=== PATIENT | female | born 1935 | race Caucasian/White ===

== ENCOUNTER 2019-02-03 16:24 | Observation (INO) | payer MEDICARE, OTHER ==
[~2019-02-03] VITALS: Ht 152.4 cm; Wt 66.7 kg
--- NOTE | 2019-02-03 16:30 | NUR ---
Contact made of pt's choice to dgt Jacinda [phone] which lives [place]. Gave info leading to arrival and pending work up. She is in route to come shortly after a son picks her up. They will come to [facility] to get patient's car irregardless if she is admitted to [place]. Pt's keys will be kept in ER [facility] for them to orange picker to go obtain car from [employer] on [address] Pt agreeable to this.
--- NOTE | 2019-02-03 16:48 | ED General ---
General Stated Complaint: BLOOD SUGAR ISSUES Source of Information: Patient, EMS Exam Limitations: No Limitations (NASRA CAMPOS DO) History of Present Illness Date Seen by Provider: Feb 03, 2019 Time Seen by Provider: 16:35 Initial Comments The patient is a very pleasant 83-year-old female who presents for evaluation of exhaustion and some confusion. She is from out of town and is traveling to visit her son and stopped at a gas station to ask for directions and seemed like she was going to pass out so staff had her sit in a chair and called EMS. Upon arrival she states that she feels confused and that she never feels confused. She states that she is extremely tired and just wants to sleep. Denies headache, vision changes, neck pain or neck stiffness, focal weakness or numbness, difficulty speaking, difficulty walking, chest pain or shortness of breath, abdominal or back pain, rectal bleeding, palpitations, or syncope. She does report some dysuria over the last 2 days. She is alert and oriented 4, calm, and appears to be no distress this time. Severity: Moderate Associated Systoms: Denies Symptoms (NASRA CAMPOS DO) Allergies and Home Medications Allergies Coded Allergies: No Known Drug Allergies (Unverified , 02/03/19) Home Medications Unable to Obtain Active Prescriptions or Reported Meds Patient Home Medication List Home Medication List Reviewed: Yes (NASRA CAMPOS DO) Review of Systems Review of Systems Constitutional: malaise, weakness EENTM: no symptoms reported Respiratory: no symptoms reported Cardiovascular: no symptoms reported Gastrointestinal: no symptoms reported Genitourinary: no symptoms reported Musculoskeletal: no symptoms reported Skin: no symptoms reported Psychiatric/Neurological: No Symptoms Reported Hematologic/Lymphatic: No Symptoms Reported Immunological/Allergic: no symptoms reported (NASRA CAMPOS DO) All Other Systems Reviewed Negative Unless Noted: Yes (NASRA CAMPOS DO) Past Kggogvv-Shehka-Hmolyq Hx Past Med/Social Hx: Reviewed Nursing Past Med/Soc Hx (NASRA CAMPOS DO) Patient Social History Recent Foreign Travel: No Contact w/Someone Who Travel: No (NASRA CAMPOS DO) Physical Exam Vital Signs Vital Signs - First Documented 02/03/19 16:24 Temp 36.7 Pulse 96 Resp 15 B/P (MAP) 126/57 (80) Pulse Ox 93 O2 Delivery Room Air (KRIS GUILLERMO MD) Vital Signs Capillary Refill : (NASRA CAMPOS DO) Height, Weight, BMI Height: '" Weight: lbs. oz. 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 Norm as Tested Skin: Normal Color, Warm/Dry (NASRA CAMPOS DO) Focused Exam Lactate Level 02/03/19 16:30: Lactic Acid Level 1.17 (KRIS GUILLERMO MD) Lactic Acid Level (KRIS GUILLERMO MD) Progress/Results/Core Measures Suspected Sepsis SIRS Temperature: Pulse: Respiratory Rate: Laboratory Tests 02/03/19 16:30: White Blood Count 11.8H Blood Pressure / Mean: Laboratory Tests 02/03/19 16:30: Creatinine 1.29, Platelet Count 272, Total Bilirubin 0.5 (NASRA CAMPOS DO) Results/Orders Lab Results Laboratory Tests Test 02/03/19 16:30 02/03/19 17:50 Range/Units White Blood Count 11.8 H 4.3-11.0 10^3/uL Red Blood Count 4.22 L 4.35-5.85 10^6/uL Hemoglobin 12.8 11.5-16.0 G/DL Hematocrit 39 35-52 % Mean Corpuscular Volume 92 80-99 FL Mean Corpuscular Hemoglobin 30 25-34 PG Mean Corpuscular Hemoglobin Concent 33 32-36 G/DL Red Cell Distribution Width 13.7 10.0-14.5 % Platelet Count 272 130-400 10^3/uL Mean Platelet Volume 8.9 7.4-10.4 FL Neutrophils (%) (Auto) 78 H 42-75 % Lymphocytes (%) (Auto) 13 12-44 % Monocytes (%) (Auto) 8 0-12 % Eosinophils (%) (Auto) 0 0-10 % Basophils (%) (Auto) 1 0-10 % Neutrophils # (Auto) 9.3 H 1.8-7.8 X 10^3 Lymphocytes # (Auto) 1.5 1.0-4.0 X 10^3 Monocytes # (Auto) 1.0 0.0-1.0 X 10^3 Eosinophils # (Auto) 0.0 0.0-0.3 10^3/uL Basophils # (Auto) 0.1 0.0-0.1 10^3/uL Sodium Level 139 135-145 MMOL/L Potassium Level 4.0 3.6-5.0 MMOL/L Chloride Level 101 98-107 MMOL/L Carbon Dioxide Level 21 21-32 MMOL/L Anion Gap 17 H 5-14 MMOL/L Blood Urea Nitrogen 18 7-18 MG/DL Creatinine 1.29 0.60-1.30 MG/DL Estimat Glomerular Filtration Rate 39 BUN/Creatinine Ratio 14 Glucose Level 187 H 70-105 MG/DL Lactic Acid Level 1.17 0.50-2.00 MMOL/L Calcium Level 8.9 8.5-10.1 MG/DL Corrected Calcium 9.1 8.5-10.1 MG/DL Magnesium Level 1.9 1.6-2.4 MG/DL Total Bilirubin 0.5 0.1-1.0 MG/DL Aspartate Amino Transf (AST/SGOT) 18 5-34 U/L Alanine Aminotransferase (ALT/SGPT) 10 0-55 U/L Alkaline Phosphatase 81 40-136 U/L Troponin I < 0.30 <0.30 NG/ML Total Protein 6.8 6.4-8.2 GM/DL Albumin 3.7 3.2-4.5 GM/DL Urine Color YELLOW Urine Clarity CLOUDY Urine pH 6.5 5-9 Urine Specific [place] 1.015 L 1.016-1.022 Urine Protein 2+ H NEGATIVE Urine Glucose (UA) NEGATIVE NEGATIVE Urine Ketones 2+ H NEGATIVE Urine Nitrite POSITIVE H NEGATIVE Urine Bilirubin NEGATIVE NEGATIVE Urine Urobilinogen 0.2 NORMAL MG/DL Urine Leukocyte Esterase 3+ H NEGATIVE Urine RBC (Auto) 2+ H NEGATIVE Urine RBC 10-25 H /HPF Urine WBC >100 H /HPF Urine Squamous Epithelial Cells NONE /HPF Urine Crystals NONE /LPF Urine Bacteria LARGE H /HPF Urine Casts NONE /LPF Urine Mucus NEGATIVE /LPF Urine Culture Indicated YES (KRIS GUILLERMO MD) My Orders Orders - KRIS GUILLERMO MD Ns Iv 1000 Ml (Sodium Chloride 0.9%) (02/03/19 18:21) Ceftriaxone For Iv Use (Rocephin For I (02/03/19 19:02) Ns Iv 1000 Ml (Sodium Chloride 0.9%) (02/03/19 19:30) (KRIS GUILLERMO MD) Vital Signs/I&O 02/03/19 02/03/19 02/03/19 02/03/19 16:24 20:05 21:21 21:21 Temp 36.7 37.3 37.3 Pulse 96 98 96 96 Resp 15 25 18 18 B/P (MAP) 126/57 (80) 125/54 123/62 123/62 (82) Pulse Ox 93 95 94 94 O2 Delivery Room Air Room Air Room Air Room Air (KRIS GUILLERMO MD) Vital Signs/I&O Capillary Refill : (NASRA CAMPOS DO) Progress Note : Progress Note @1800 - Pt care handed over to Dr. Guillermo at this time. Awaiting urinalysis. RN has spoken with pt's family and they are aware she will likely need to be admitted and are planning to come here to see her and help with her vehicle. (NASRA CAMPOS DO) Progress Note #1: Time: 18:00 Progress Note I assumed care for the patient from Dr. Campos at shift change. Patient waiting on Urinalysis to determine disposition but plan from Dr. Campos was to admit for confusion presuming that she has a UTI. She also appears to be dry with her having heart rate just over 100 and Cr 1.29 and GFR 39. Will give IVF while waiting on cath UA results and Lactic acid to come back. When speaking with the patient she was still confused for me as she was oriented to self but could not tell me where she was at until prompted and finally could tell me the building was a hospital and for time initially told me it was 1919 then 1920 then corrected herself to say it was 2019. Progress Note #2: Progress Note Urinalysis shows infection with positive Leukocyte esterase as well as nitrites. She has bacteria with white blood cells and some blood. A culture will be run. With her continued confusion will give antibiotics here and discuss with the hospitalist about admission to ensure that her mentation is clearing prior to discharging home with family. Will give Rocephin 1 g IV and continue hydration and 75 mls per hour of normal saline. Discussed with Dr. Ladd is the hospitalist program management professional and she accepted the admission at 1912. (KRIS GUILLERMO MD) ECG EKG : Comment @1624 - Normal sinus rhythm, rate of 98, no acute ischemic findings noted, no STEMI, reviewed and interpreted by myself (NASRA CAMPOS DO) Diagnostic Imaging Comments [facility]. POS [place], [place] POS NAME: JIMMIE VEGA [facility] REC#: [id number] PT STATUS: REG ER : 1935 PHYSICIAN: NASRA CAMPOS DO ADMIT DATE: 02/03/19/ER FS Draft POSDate of Exam:02/03/19 CT HEAD WO PROCEDURE: CT head without contrast. TECHNIQUE: Multiple contiguous axial images were obtained through the brain without the use of intravenous contrast. Auto Exposure Controls were utilized during the CT exam to meet ALARA standards for radiation dose reduction. INDICATION: Acute onset dizziness. COMPARISON: There is no previous study for comparison. FINDINGS: Ventricles and sulci are prominent. Focal lucency is seen within the left basal ganglia which may be related to old lacunar infarct or possible prominent perivascular space. There is no evidence of hemorrhage. No territorial infarct is identified. Calvarium is intact. There is a prominent subcutaneous nodule in the left posterior parietal scalp measuring approximately 2.4 x 1.3 cm. IMPRESSION: No acute intracranial abnormality. Dictated on workstation # [id number] Dict: 02/03/191703 Trans: 02/03/19 1706 [facility] [id number] Interpreted by: ROSANA MIDDLETON MD Electronically signed by: (NASRA CAMPOS DO) Diagonstic Imaging: Xray Plain Films/CT/US/NM/MRI: chest Comments NAME: JIMMIE VEGA [facility] REC#: [id number] PT STATUS: REG ER : 1935 PHYSICIAN: NASRA CAMPOS DO ADMIT DATE: 02/03/19/ER FS Draft POSDate of Exam:02/03/19 CHEST 1 VIEW AP/PA ONLY INDICATION: Syncope. Sudden onset of dizziness. EXAMINATION: Portable chest. FINDINGS: The lungs are well aerated. There are no infiltrates. There is no air-trapping. The heart is not enlarged. No pulmonary edema. No hilar adenopathy. No pneumothorax or pleural effusion. No bony abnormality. IMPRESSION: Normal portable chest. Dictated on workstation # [id number] Dict: 02/03/19 1719 Trans: 02/03/19 1721 [facility] [id number] Interpreted by: JUDE LOERA MD Electronically signed by: (KRIS GUILLERMO MD) Departure Communication (Admissions) Time/Spoke to Admitting Phy: 19:12 D/w Dr. Ladd about results and desire to admit overnight for gentle hydration and antibiotics to see if that helps her mentation clear. Family on their way from [place] to get her car and would be able to help get her home in the morning if she is improving. Will recheck labs in am. (KRIS GUILLERMO MD) Impression Primary Impression: Acute cystitis with hematuria Additional Impressions: Altered mental status Qualified Codes: R40.4 - Transient alteration of awareness Dehydration Acute renal insufficiency Disposition: ADMITTED INPATIENT Condition: Stable Admissions Decision to Admit Reason: Admit from ER (General) Decision to Admit/Date: Feb 03, 2019 Time/Decision to Admit Time: 19:12 (KRIS GUILLERMO MD) Departure-Patient Inst. Scripts Unable to Obtain Active Prescriptions or Reported Meds NASRA CAMPOS DO Feb 03, 2019 16:48 KRIS BLACKMON MD Feb 03, 2019 18:20 POS
--- NOTE | 2019-02-03 17:07 | Diagnostic Imaging Report ---
PROCEDURE: CT head without contrast. TECHNIQUE: Multiple contiguous axial images were obtained through the brain without the use of intravenous contrast. Auto Exposure Controls were utilized during the CT exam to meet ALARA standards for radiation dose reduction. INDICATION: Acute onset dizziness. COMPARISON: There is no previous study for comparison. FINDINGS: Ventricles and sulci are prominent. Focal lucency is seen within the left basal ganglia which may be related to old lacunar infarct or possible prominent perivascular space. There is no evidence of hemorrhage. No territorial infarct is identified. Calvarium is intact. There is a prominent subcutaneous nodule in the left posterior parietal scalp measuring approximately 2.4 x 1.3 cm. IMPRESSION: No acute intracranial abnormality. Dictated by: Dictated on workstation # [id number]
--- NOTE | 2019-02-03 17:21 | Diagnostic Imaging Report ---
INDICATION: Syncope. Sudden onset of dizziness. EXAMINATION: Portable chest. FINDINGS: The lungs are well aerated. There are no infiltrates. There is no air-trapping. The heart is not enlarged. No pulmonary edema. No hilar adenopathy. No pneumothorax or pleural effusion. No bony abnormality. IMPRESSION: Normal portable chest. Dictated by: Dictated on workstation # [id number]
[2019-02-03 17:24] LABS: BILIRUBIN,TOTAL 0.5 MG/DL (0.1-1.0); CALCIUM 8.9 MG/DL (8.5-10.1); CREATININE SERUM 1.29 MG/DL (0.60-1.30); MAGNESIUM 1.9 MG/DL (1.6-2.4); TOTAL PROTEIN 6.8 GM/DL (6.4-8.2)
[2019-02-03 17:25] LABS: ALBUMIN 3.7 GM/DL (3.2-4.5); HEMATOCRIT 39 % (35-52); HEMOGLOBIN 12.8 G/DL (11.5-16.0); MEAN CORPUSCULAR HEMOGLOBIN 30 PG (25-34); WHITE BLOOD COUNT 11.8 10^3/uL (4.3-11.0)
[2019-02-03 17:26] LABS: BASOPHILS # (AUTO) 0.1 10^3/uL (0.0-0.1); BASOPHILS % (AUTO) 1 % (0-10); EOSINOPHILS % (AUTO) 0 % (0-10); LYMPHOCYTES # (AUTO) 1.5 X 10^3 (1.0-4.0); LYMPHOCYTES % (AUTO) 13 % (12-44); MEAN CORPUSCULAR HGB CONC 33 G/DL (32-36); MEAN CORPUSCULAR VOLUME 92 FL (80-99); MEAN PLATELET VOLUME 8.9 FL (7.4-10.4); MONOCYTES % (AUTO) 8 % (0-12); NEUTROPHILS # (AUTO) 9.3 X 10^3 (1.8-7.8); NEUTROPHILS % (AUTO) 78 % (42-75); PLATELET COUNT 272 10^3/uL (130-400); RED CELL DISTRIBUTION WIDTH 13.7 % (10.0-14.5)
--- NOTE | 2019-02-03 18:14 | NUR ---
Pt's son Milton Hanley in [place] [phone] called as he has text patient and not getting answer and Jacinda the sister has notified him. He reports she is very sharp and very healthy, no health problems. Pt handles her own affairs. Pt was up visiting him a few days and he tried to convince her to stay longer as she seemed exhausted and they thought she was going to bathroom every 5 minutes while there. Son reports he has a [employer] lyndon on her phone and can track her. He was verifying what his sister Jacinda had said. Pt had reported trying to go to [facility] to see her son and Milton reports there is no son at that location. Pt does reside in [place]. Pt has her phone and he will continue to try to reach her to speak. Phone service intermittant.
[2019-02-03] MEDS ORDERED: NS IV 1000 ML 1,000 ML IV STA (18:21)
[2019-02-03 18:26] LABS: BILIRUBIN,URINE NEGATIVE (NEGATIVE); CLARITY,URINE CLOUDY; COLOR,URINE YELLOW; GLUCOSE, URINE (UA) NEGATIVE (NEGATIVE); KETONES,URINE 2+ (NEGATIVE); NITRITE,URINE POSITIVE (NEGATIVE); PH,URINE 6.5 (5-9); PROTEIN,URINE 2+ (NEGATIVE)
[2019-02-03 18:27] LABS: LEUKOCYTE ESTERASE ,URINE 3+ (NEGATIVE)
[2019-02-03 18:29] LABS: BACTERIA,URINE LARGE /HPF; WBC,URINE >100 /HPF
--- NOTE | 2019-02-03 19:00 | NUR ---
Report to Lin DICKERSON. Pt has been told she is being admitted to [facility] for AMS, UTI. Pt's cell being charged with staff's histopath tech at this time as she has all family contacts and they are texting her.
[2019-02-03] MEDS ORDERED: cefTRIAXone FOR IV USE 1,000 MG in WATER (STERILE) FOR INJECTION 10 ML IV STA (19:02)
[2019-02-03] MEDS ORDERED: NS IV 1000 ML 1,000 ML IV SCH (19:30)
--- NOTE | 2019-02-03 20:05 | NUR ---
Ems here report given, attempted to call report to nurse, Giulia Rn will call back for report.
--- NOTE | 2019-02-03 20:38 | NUR ---
REPORT RECEIVED ON THIS PT AT THIS TIME. Addendum: 02/03/19 at 2351 by NAOMI KING RN INACCURATE TIME. REPORT RECEIVED BY ANTHNOY DICKERSON AT 2014. REPORT FROM EMS RECEIVED AT 2037.
--- NOTE | 2019-02-03 20:50 | NUR ---
JIMMIE VEGA admitted to room 420-1, with an admitting diagnosis of UTI AND AMS, on 02/03/19 from [facility] via AMBULANCE, TRANSPORTED VIA STRETCHER, accompanied by EMS STAFF. JIMMIE VEGA introduced to surroundings, call light, bed controls, phone, TV, temperature control, lights, meal times, smoking policy, visitor policy, side rail policy, bathrooms and showers. Patient Rights given to patient in the handbook. JIMMIE VEGA verbalizes understanding that [facility] is not responsible for the loss or damage to any personal effects or valuables that are kept in the patients possession during their hospitalization. JIMMIE VEGA verbalizes understanding of Interdisciplinary Patient Education. Patient and/or family were informed about the Rapid Response Team and its purpose.
[2019-02-03] MEDS ORDERED: ONDANSETRON 4 MG (ZOFRAN) ORAL DISSOLVE TAB PO PRN (21:00)
[2019-02-03] MEDS ORDERED: ALPRAZolam 0.25 MG (XANAX) TAB PO PRN (21:00)
[2019-02-03] MEDS ORDERED: ENOXAPARIN 40 MG/0.4 ML (LOVENOX) SYR SC SCH (21:00)
[2019-02-03] MEDS ORDERED: diphenhydrAMINE 25 MG TAB (BENADRYL) PO PRN (21:00)
[2019-02-03] MEDS ORDERED: ACETAMINOPHEN 500 MG TAB (TYLENOL) PO PRN (21:00)
[2019-02-03] MEDS ORDERED: MELATONIN 3 MG TABLET PO PRN (21:00)
[2019-02-03] MEDS ORDERED: ONDANSETRON 4 MG/2 ML (SDV) Z0FRAN IVP PRN (21:00)
[2019-02-03] MEDS ORDERED: fentaNYL INJECTION 100 MCG/2 ML AMP IVP PRN (21:00)
[2019-02-03] MEDS ORDERED: DOCUSATE SODIUM 100 MG (COLACE) CAP PO PRN (21:00)
[2019-02-03] MEDS ORDERED: LOPERAMIDE 2 MG (IMODIUM) TABLET PO PRN (21:00)
[2019-02-03] MEDS ORDERED: CALCIUM CARBONATE 500 MG (TUMS) TAB.CHEW PO PRN (21:00)
[2019-02-03 21:21] VITALS: BP 123/62
[2019-02-03] MEDS: SENNA W/DOCUSATE (SENOKOT S) TABLET PO SCH (22:49)
[2019-02-04 00:01] VITALS: BP 111/73
[2019-02-04 04:26] VITALS: BP 121/74
[2019-02-04 06:47] LABS: BASOPHILS % (AUTO) 0 % (0-10); EOSINOPHILS # (AUTO) 0.1 10^3/uL (0.0-0.3); EOSINOPHILS % (AUTO) 0 % (0-10); HEMATOCRIT 36 % (35-52); HEMOGLOBIN 11.8 G/DL (11.5-16.0); LYMPHOCYTES # (AUTO) 1.8 X 10^3 (1.0-4.0); LYMPHOCYTES % (AUTO) 16 % (12-44); MEAN CORPUSCULAR HEMOGLOBIN 30 PG (25-34); MEAN CORPUSCULAR HGB CONC 33 G/DL (32-36); MEAN CORPUSCULAR VOLUME 92 FL (80-99); MEAN PLATELET VOLUME 9.3 FL (7.4-10.4); MONOCYTES % (AUTO) 9 % (0-12); NEUTROPHILS # (AUTO) 8.7 X 10^3 (1.8-7.8); NEUTROPHILS % (AUTO) 75 % (42-75); PLATELET COUNT 252 10^3/uL (130-400); RED CELL DISTRIBUTION WIDTH 14.2 % (10.0-14.5); WHITE BLOOD COUNT 11.6 10^3/uL (4.3-11.0)
[2019-02-04 07:16] LABS: ALBUMIN 3.2 GM/DL (3.2-4.5); BILIRUBIN,TOTAL 0.4 MG/DL (0.1-1.0); CALCIUM 8.1 MG/DL (8.5-10.1); CREATININE SERUM 0.98 MG/DL (0.60-1.30); POTASSIUM 3.6 MMOL/L (3.6-5.0); TOTAL PROTEIN 5.8 GM/DL (6.4-8.2)
[2019-02-04] MEDS ORDERED: cefTRIAXone FOR IV USE 1,000 MG in WATER (STERILE) FOR INJECTION 10 ML IV SCH ×2 (07:45→19:00)
[2019-02-04 08:40] VITALS: BP 109/53
[2019-02-04] MEDS: SENNA W/DOCUSATE (SENOKOT S) TABLET PO SCH (09:38)
[2019-02-04] MEDS ORDERED: CEFD300C3 PO (09:44)
--- NOTE | 2019-02-04 09:53 | Discharge Summary ---
Discharge Summary Hospital Course Problems/Dx: (1) Acute cystitis with hematuria Status: Acute (2) Acute kidney injury Status: Resolved Final Diagnosis: Acute cystitis with hematuria Hospital Course Date of Admission: Feb 03, 2019 at 19:12 Admission Diagnosis : Acute cystitis with hematuria Family Physician/Provider: Date of Discharge: 02/04/19 Discharge Diagnosis: Acute cystitis with hematuria Hospital Course: Che Hanley is an 83yoF with no significant PMH who presented with confusion and was admitted with a urinary tract infection. She had been having issues with dysuria, urgency, and frequency. She was driving from [place] to [place] and got lost on the way and ended up in [place], [place]. She was found to have a UTI and was started on Rocephin. She rapidly improved and requested to be discharged so she can get home to [place]. Her daughter is present and will drive her home. She will follow up with her primary care provider early next week. We will contact her if her infection is caused by a resistant bacteria. Labs and Pending Lab Test: Laboratory Tests 02/03/19 16:30: White Blood Count 11.8H, Red Blood Count 4.22L, Hemoglobin 12.8, Hematocrit 39, Mean Corpuscular Volume 92, Mean Corpuscular Hemoglobin 30, Mean Corpuscular Hemoglobin Concent 33, Red Cell Distribution Width 13.7, Platelet Count 272, Mean Platelet Volume 8.9, Neutrophils (%) (Auto) 78H, Lymphocytes (%) (Auto) 13, Monocytes (%) (Auto) 8, Eosinophils (%) (Auto) 0, Basophils (%) (Auto) 1, Neutrophils # (Auto) 9.3H, Lymphocytes # (Auto) 1.5, Monocytes # (Auto) 1.0, Eosinophils # (Auto) 0.0, Basophils # (Auto) 0.1, Sodium Level 139, Potassium Level 4.0, Chloride Level 101, Carbon Dioxide Level 21, Anion Gap 17H, Blood Urea Nitrogen 18, Creatinine 1.29, Estimat Glomerular Filtration Rate 39, BUN/Creatinine Ratio 14, Glucose Level 187H, Lactic Acid Level 1.17, Calcium Level 8.9, Corrected Calcium 9.1, Magnesium Level 1.9, Total Bilirubin 0.5, Aspartate Amino Transf (AST/SGOT) 18, Alanine Aminotransferase (ALT/SGPT) 10, Alkaline Phosphatase 81, Troponin I < 0.30, Total Protein 6.8, Albumin 3.7 02/03/19 17:50: Urine Color YELLOW, Urine Clarity CLOUDY, Urine pH 6.5, Urine Specific [place] 1.015L, Urine Protein 2+H, Urine Glucose (UA) NEGATIVE, Urine Ketones 2+H, Urine Nitrite POSITIVEH, Urine Bilirubin NEGATIVE, Urine Urobilinogen 0.2, Urine Leukocyte Esterase 3+H, Urine RBC (Auto) 2+H, Urine RBC 10-25H, Urine WBC >100H, Urine Squamous Epithelial Cells NONE, Urine Crystals NONE, Urine Bacteria LARGEH , Urine Casts NONE, Urine Mucus NEGATIVE, Urine Culture Indicated YES 02/04/19 05:51: White Blood Count 11.6H, Red Blood Count 3.90L, Hemoglobin 11.8, Hematocrit 36, Mean Corpuscular Volume 92, Mean Corpuscular Hemoglobin 30, Mean Corpuscular Hemoglobin Concent 33, Red Cell Distribution Width 14.2, Platelet Count 252, Mean Platelet Volume 9.3, Neutrophils (%) (Auto) 75, Lymphocytes (%) (Auto) 16, Monocytes (%) (Auto) 9, Eosinophils (%) (Auto) 0, Basophils (%) (Auto) 0, Neutrophils # (Auto) 8.7H, Lymphocytes # (Auto) 1.8, Monocytes # (Auto) 1.0, Eosinophils # (Auto) 0.1, Basophils # (Auto) 0.0, Sodium Level 143, Potassium Level 3.6, Chloride Level 110H, Carbon Dioxide Level 22, Anion Gap 11, Blood Urea Nitrogen 14, Creatinine 0.98, Estimat Glomerular Filtration Rate 54, BUN/Creatinine Ratio 14, Glucose Level 107H, Calcium Level 8.1L, Corrected Calcium 8.7, Total Bilirubin 0.4, Aspartate Amino Transf (AST/SGOT) 16, Alanine Aminotransferase (ALT/SGPT) 12, Alkaline Phosphatase 67, Total Protein 5.8L, Albumin 3.2 Home Meds Active Cefdinir 300 Mg Capsule 300 Mg PO BID 7 Days Assessment/Pt Instructions Take medications as prescribed. Complete your antibiotic even if you are feeling better. Follow up with your primary care doctor early next week. We will call you if there is any issue with a resistant bacteria. Discharge Instructions Discharge Diet: No Restrictions Activity as Tolerated: Yes Discharge Physical Examination General Appearance: Alert, Oriented X3, Cooperative, No Acute Distress HEENT: Atraumatic, EOMI, Mucous Memb Moist/[place] Respiratory: Clear to Auscultation, Normal Air Movement Cardiovascular: Regular Rate, Normal S1, Normal S2, No Murmurs Abdominal: Normal Bowel Sounds, Soft, No Tenderness Extremities: No Edema, No Tenderness/Swelling Skin: No Rashes, No Significant Lesion Neuro: Normal Speech, Strength at 5/5 X4 Ext, Normal Tone Psych/Mental Status: Mental Status NL, Mood NL Allergies: Coded Allergies: No Known Drug Allergies (Unverified , 02/03/19) Discharge Summary Date of Admission Feb 03, 2019 at 19:12 Date of Discharge Discharge Date: Feb 04, 2019 Discharge Time: 09:51 Admission Diagnosis Acute cystitis with hematuria Discharge Diagnosis (1) Acute cystitis with hematuria Status: Acute Clinical Quality Measures DVT/VTE Risk/Contraindication: Risk Factor Score Per Nursin RFS Level Per Nursing on Admit: 2=Moderate XOCHILT ZULETA MD Feb 04, 2019 09:51 POS
== END 2019-02-04 09:42 | disposition home or self-care (01) ==
LOC: ER FS 16:29 → 4TH 19:12 → UNDOADMOB 19:12 → 4TH 21:00 → UNDODISOB 02-04 12:21
PROVIDERS: ADMIT Internal Medicine; ATTEND Internal Medicine
DX: N30.01 Acute cystitis with hematuria (principal); N28.9 Disorder of kidney and ureter, unspecified; E86.0 Dehydration; R41.89 Other symptoms and signs involving cognitive functions and awareness; R41.0 Disorientation, unspecified; R53.83 Other fatigue
CPT/HCPCS: 36415; 51702; 70450; 71045; 80053; 81000; 83605; 83735; 84484; 85025; 87040; 87077; 87088; 87186; 93005; 93041; 96361; 96365; G0378